=== PATIENT | male | born 1995 | race Caucasian/White ===

== ENCOUNTER 2016-05-16 16:54 | Emergency (ER) | payer BC ==
[~2016-05-16] VITALS: Ht 180.3 cm; Wt 113.9 kg
[~2016-05-16 16:54] MED LIST: BENAZEPRIL; CELEXA; CLONAZEPAM; CLONIDINE; COZAAR100 MG PO; DEXEDRINE, DEXT10 MG PO; SEROQUEL
[2016-05-16 17:37] LABS: HEMATOCRIT 49.6 % (38.0-50.0); MCHC 36.1 G/DL (30.0-36.0); MCV 83.2 FL (86-99); MEAN PLAT.VOLUME 11.4 uM^3 (9.0-12.4); PLATELET COUNT 188 K/uL (156-360); RBC DIS.WIDTH-CV 12.8 % (11.8-14.6); RBC DIS.WIDTH-SD 38.8 % (39-53); RED BLOOD COUNT 5.96 M/uL (4.00-5.50); WHITE BLOOD COUNT 12.1 K/uL (4.1-10.2)
[2016-05-16 17:46] LABS: CHLORIDE 104 mEq/L (99-109); POTASSIUM 4.2 mEq/L (3.7-5.4); SODIUM 140 mEq/L (136-147)
[2016-05-16 17:48] LABS: GLUCOSE 92 mg/dL (70-99)
[2016-05-16 17:49] LABS: ANION GAP 10 MEQ/L (2-14)
[2016-05-16 17:50] LABS: TOTAL BILIRUBIN 1.1 mg/dL (0.0-1.0)
[2016-05-16 17:51] LABS: ALKALINE PHOSPHATASE 83 IU/L (3-129)
[2016-05-16 17:52] LABS: GFR ESTIMATE (CALCULATED) > 59 mL/min/
[2016-05-16 17:53] LABS: UREA NITROGEN (BUN) 16 mg/dL (9-23)
[2016-05-16 17:57] LABS: BILIRUBIN NEGATIVE; BLOOD NEGATIVE; COLOR YELLOW ((YELLOW)); GLUCOSE (STRIP) NEGATIVE; KETONES NEGATIVE; LEUKOCYTES NEGATIVE; NITRITE NEGATIVE; PH, URINE 5.5 (5-8); PROTEIN (STRIP) NEGATIVE; SPECIFIC GRAVITY 1.029 (1.000-1.030); UROBILINOGEN 0.2 MG/DL (0.2-1.0)
[2016-05-16 18:05] LABS: ADD MIUA? NO; UCUL ADDED? NO
[2016-05-16 21:48] VITALS: BP 155/103
== END 2016-05-16 21:48 | disposition home or self-care (01) ==
LOC: EME 16:54
DX: R10.13 Epigastric pain (principal); I10 Essential (primary) hypertension; F17.200 Nicotine dependence, unspecified, uncomplicated
CPT/HCPCS: 76705; 80053; 81003; 85027; 99281; 99285; J2270; J2405; J7030

== ENCOUNTER 2016-11-04 16:34 | Emergency (ER) | payer BC ==
[~2016-11-04] VITALS: Ht 180.3 cm; Wt 120.8 kg
[2016-11-04 18:41] LABS: HEMATOCRIT 46.5 % (38.0-50.0); MCH 30.5 PG (29.0-34.0); MCHC 35.5 G/DL (30.0-36.0); PLATELET COUNT 237 K/uL (156-360); RBC DIS.WIDTH-CV 12.3 % (11.8-14.6); RBC DIS.WIDTH-SD 38.5 % (39-53); RED BLOOD COUNT 5.41 M/uL (4.00-5.50); WHITE BLOOD COUNT 13.5 K/uL (4.1-10.2)
[2016-11-04 18:51] LABS: CHLORIDE 104 mEq/L (99-109); POTASSIUM 3.7 mEq/L (3.7-5.4); SODIUM 139 mEq/L (136-147)
[2016-11-04 18:52] LABS: GLUCOSE 80 mg/dL (70-99)
[2016-11-04 18:54] LABS: ANION GAP 10 MEQ/L (2-14)
[2016-11-04 18:56] LABS: GFR ESTIMATE (CALCULATED) > 59 mL/min/
[2016-11-04 18:57] LABS: UREA NITROGEN (BUN) 15 mg/dL (9-23)
[2016-11-04] MEDS ORDERED: MICROZIDE12.5 M1 PO (19:33)
[2016-11-04] MEDS ORDERED: NAPROXEN500 MG PO (19:33)
[2016-11-04 19:56] VITALS: BP 142/96
[2016-11-07 12:35] LABS: LYME DISEASE SEROLOGY SCREEN NEGATIVE (NEGATIVE)
== END 2016-11-04 19:54 | disposition home or self-care (01) ==
LOC: EXP 16:34 → EME 16:34 → EXP 19:54
PROVIDERS: Nurse Practitioner Family
DX: R51 Headache (principal); I10 Essential (primary) hypertension; D72.829 Elevated white blood cell count, unspecified; M54.2 Cervicalgia; F17.200 Nicotine dependence, unspecified, uncomplicated
CPT/HCPCS: 70450; 80048; 81003; 85027; 86618; 99281; 99285; J1200; J1885; J2765; J7030